=== PATIENT | male | born 1985 | race Caucasian/White ===

== ENCOUNTER 2023-03-30 08:50 | Emergency (ER) | payer MEDICAID ==
[~2023-03-30] VITALS: Ht 175.3 cm; Wt 84.8 kg
[2023-03-30 09:51] VITALS: BP 134/89; TEMP 98.8; O2SAT 97
== END 2023-03-30 10:16 | disposition home or self-care (01) ==
LOC: ER 08:55
DX: F15.10 Other stimulant abuse, uncomplicated (principal); F41.9 Anxiety disorder, unspecified; Z60.2 Problems related to living alone